=== PATIENT | female | born 1950 | race Caucasian/White ===

== ENCOUNTER 2016-12-12 08:00 | Inpatient (IN) | payer OTHER ==
[~2016-12-12] VITALS: Ht 162.6 cm; Wt 80.6 kg
[2016-12-12] MEDS ORDERED: SODIUM CHLORIDE 0.9% 1,000 ML IV ONE (08:15)
[2016-12-12 08:54] LABS: Basophils # (auto) 0 uL; Basophils % (auto) 0.3 % (0.0-2.0); Eosinophils # (auto) 0.2 uL; Eosinophils % (auto) 2.5 % (0.0-7.0); Hematocrit 40.8 % (36.0-46.0); Hemoglobin 13.5 g/dL (12.2-16.2); Lymphocytes # (auto) 2.6 uL; Lymphocytes % (auto) 39.5 % (10.0-50.0); Mean Corpuscular Hemoglobin 31.5 pg (28.0-32.0); Mean Corpuscular Hgb Conc. 33.1 g/dL (32.0-36.0); Mean Corpuscular Volume 94.9 fL (80.0-100.0); Monocytes # (auto) 0.8 uL; Monocytes % (auto) 11.7 % (0.0-12.0); Platelet Count (auto) 264 10^3/uL (140-450); White Blood Cell 6.5 10^3/uL (4.4-10.8)
[2016-12-12 09:00] LABS: INR 1.01 (0.9-1.15); Partial Thromboplastin Time 22.9 sec (22.64-33.71); Prothrombin Time 10.9 sec (9.37-12.3)
[2016-12-12 09:10] LABS: Albumin 3.1 g/dL (3.4-5.0); Alkaline Phosphatase 109 U/L (45-117); Anion Gap 8 (5-15); Aspartate Aminotransferase 17 U/L (15-37); BUN/Creatinine Ratio 23.8; Bilirubin, Total 0.4 mg/dL (0.2-1.0); Blood Urea Nitrogen 20 mg/dL (7-18); Calcium 8.2 mg/dL (8.5-10.1); Carbon Dioxide 25 mmol/L (21-32); Chloride 108 mmol/L (98-107); GFR African American 87 mL/min; GFR Non-African American 72 mL/min; Glucose 96 mg/dL (74-106); Magnesium 2.2 mg/dL (1.6-2.6); Potassium 4.2 mmol/L (3.5-5.1); Sodium 141 mmol/L (136-145); Total Protein 6.6 g/dL (6.4-8.2)
[2016-12-12 09:56] LABS: Urine Bilirubin Negative (Negative); Urine Blood Negative /uL (Negative); Urine Color Yellow (Yellow); Urine Glucose Normal (Normal); Urine Ketone Negative (Negative); Urine Nitrite Negative (Negative); Urine RBC 1 /hpf (0 - 4); Urine Squamous Epithelial Cell FEW /hpf (<5); Urine Urobilinogen Normal (Negative); Urine pH 5.5 (5.0-8.0)
[2016-12-12] MEDS: SODIUM CHLORIDE 0.9% 1,000 ML IV SCH ×2 (10:22→22:52)
[2016-12-12] MEDS ORDERED: MORPHINE SULF INJ 2 MG/ML SYRINGE 1ML IV PRN ×2 (10:30)
[2016-12-12] MEDS ORDERED: LACTULOSE 20Gm/30ML SOLN PO PRN (10:30)
[2016-12-12] MEDS ORDERED: HYDROcodone-ACET 5/325MG TAB PO PRN (10:30)
[2016-12-12] MEDS ORDERED: ACETAMINOPHEN 500 MG TAB PO PRN (10:30)
[2016-12-12] MEDS ORDERED: LORazepam 0.5 MG TAB PO PRN (10:30)
[2016-12-12] MEDS ORDERED: PROCHLORPERAZINE EDISYLATE 5 MG/ML 2ML VIAL IV PRN (10:30)
[2016-12-12] MEDS ORDERED: TEMAZEPAM 15 MG CAP PO PRN (10:30)
[2016-12-12] MEDS: ASPirin 81 mg TAB PO SCH (10:41)
[2016-12-12 11:11] LABS: Temperature: 24.8 C (20.0-25.0)
[2016-12-12] MEDS ORDERED: GUAI1TAB25 PO (13:00)
[2016-12-12] MEDS ORDERED: BUPRTAB3 PO (13:00)
[2016-12-12] MEDS ORDERED: TRAZ100T2 PO (13:00)
[2016-12-12] MEDS ORDERED: LEVO125T6 PO (13:00)
[2016-12-12] MEDS ORDERED: [UNRECOGNIZED DRUG - CODE] OR (13:00)
[2016-12-12] MEDS ORDERED: ACET1CAP14 PO (13:00)
[2016-12-12] MEDS ORDERED: DULO60CA PO (13:00)
[2016-12-12] MEDS ORDERED: PERCOT PO (13:00)
[2016-12-12] MEDS ORDERED: ACET-1304 PO (13:00)
[2016-12-12] MEDS ORDERED: METH10TA4 PO (13:00)
[2016-12-12 17:00] VITALS: BP 121/72
[2016-12-12 20:00] VITALS: BP 135/73
[2016-12-12] MEDS ORDERED: CYANOCOBALAMIN (B-12) 1000 MCG/1 ML VIAL IM ONE (21:45)
[2016-12-12] MEDS ORDERED: LORazepam 2MG/ML-1ML VIAL IV PRN (21:45)
[2016-12-12 22:00] VITALS: BP 133/88
[2016-12-12] MEDS ORDERED: ATORVASTATIN 20 MG TAB PO SCH (22:00)
[2016-12-13] VITALS (7 sets, daily range): BP systolic 101–133; BP diastolic 53–88
[2016-12-13] MEDS: ASPirin 81 mg TAB PO SCH (09:31)
[2016-12-13] MEDS ORDERED: ENOXAPARIN SOD 40 MG/0.4 ML SYRINGE SC SCH (10:00)
[2016-12-13] MEDS ORDERED: CYANOCOBALAMIN 500 MCG TAB PO SCH (10:00)
[2016-12-13] MEDS: SODIUM CHLORIDE 0.9% 1,000 ML IV SCH (12:26)
== END 2016-12-13 16:12 | disposition home or self-care (01) | DRG 556 ==
LOC: ER 08:00 → TELE 08:01 → EAST 12:22 → TELE-EAST 15:19
PROVIDERS: ADMIT Internal Medicine; ATTEND Internal Medicine
PROC: 5A09357 Assistance with Respiratory Ventilation, Less than 24 Consecutive Hours, Continuous Positive Airway Pressure (ICD-10-PCS; principal; 2016-12-12)
DX: M62.838 Other muscle spasm (principal); M47.9 Spondylosis, unspecified; E03.9 Hypothyroidism, unspecified; E78.5 Hyperlipidemia, unspecified; F32.9 Major depressive disorder, single episode, unspecified; F41.9 Anxiety disorder, unspecified; I67.2 Cerebral atherosclerosis; Z80.0 Family history of malignant neoplasm of digestive organs; Z82.3 Family history of stroke; Z82.49 Family history of ischemic heart disease and other diseases of the circulatory system; Z90.49 Acquired absence of other specified parts of digestive tract; Z90.710 Acquired absence of both cervix and uterus; Z90.89 Acquired absence of other organs; Z88.8 Allergy status to other drugs, medicaments and biological substances; Z79.899 Other long term (current) drug therapy
CPT/HCPCS: 36415; 70450; 71010; 80053; 80307; 81001; 82550; 82607; 82746; 82962; 83735; 84443; 84484; 85025; 85379; 85610; 85652; 85730; 93005; 93306; 93886; 93970; 94660

== ENCOUNTER 2022-04-06 13:02 | Emergency (ER) | payer OTHER ==
[~2022-04-06] VITALS: Ht 170.2 cm; Wt 80.0 kg
[~2022-04-06 13:02] MED LIST: ACET-1304 PO; ACET1CAP14 PO; BUPRTAB3 PO; DULO60CA PO; GUAI120018 PO; LEVO125T7 PO; METH10TA4 PO; PERCOT PO; TRAZ100T3 PO; [UNRECOGNIZED DRUG - CODE] OR
[2022-04-06 14:25] LABS: Basophils # (auto) 0 10 ^3/uL (0-0.2); Basophils % (auto) 0.5 % (0.0-2.0); Eosinophils # (auto) 0 10 ^3/uL (0-0.8); Eosinophils % (auto) 0.4 % (0.0-7.0); Hematocrit 44.2 % (36.0-46.0); Hemoglobin 14.4 g/dL (12.2-16.2); Lymphocytes # (auto) 0.8 10 ^3/uL (0.4-5.4); Mean Corpuscular Hemoglobin 32.1 pg (28.0-32.0); Mean Corpuscular Hgb Conc. 32.7 g/dL (32.0-36.0); Mean Corpuscular Volume 98.3 fL (80.0-100.0); Monocytes # (auto) 0.7 10 ^3/uL (0-1.3); Monocytes % (auto) 10.1 % (0.0-12.0); Red Blood Cells 4.49 10^6/uL (4.0-5.20); Red Cell Distribution Width 12.7 % (11.8-14.3); White Blood Cell 6.5 10^3/uL (4.4-10.8)
[2022-04-06 14:34] LABS: Albumin 4.1 g/dL (3.4-5.0); Calcium 9.4 mg/dL (8.5-10.1); Magnesium 2.3 mg/dL (1.6-2.6); Potassium 4.5 mmol/L (3.5-5.1)
[2022-04-06 14:39] LABS: BUN/Creatinine Ratio 23.5; Bilirubin, Total 0.7 mg/dL (0.2-1.0); Total Protein 7.3 g/dL (6.4-8.2)
[2022-04-06 19:46] VITALS: BP 121/81
== END 2022-04-06 19:49 | disposition home or self-care (01) ==
LOC: EDBD 13:02 → ER 13:04
DX: S46.001A Unspecified injury of muscle(s) and tendon(s) of the rotator cuff of right shoulder, initial encounter (principal); R51.9 Headache, unspecified; M25.511 Pain in right shoulder; E78.5 Hyperlipidemia, unspecified; R07.89 Other chest pain; Z90.89 Acquired absence of other organs; Z90.710 Acquired absence of both cervix and uterus; W01.0XXA Fall on same level from slipping, tripping and stumbling without subsequent striking against object, initial encounter; Y93.89 Activity, other specified; Y92.89 Other specified places as the place of occurrence of the external cause; Y99.8 Other external cause status
CPT/HCPCS: 36415; 70450; 71045; 72125; 72170; 73030; 80053; 83735; 83880; 84484; 85025; 93005